=== PATIENT | male | born 1940 | race Caucasian/White ===

== ENCOUNTER 2018-01-05 08:04 | Inpatient (IN) | payer MEDICARE ==
[2018-01-05 09:05] LABS: #Eosinphils 0.1 thou/uL (0.0-0.7); #Lymphocytes 1.2 thou/uL (1.20-3.40); #Neutrophils 13.1 thou/uL (1.40-6.50); %Eosinophils 0.4 % (0.0-10.0); %Lymphocytes 7.7 % (21.0-51.0); %Monocytes 6.4 % (0.0-10.0); %Neutrophils 85.5 % (42.0-75.0); Hemoglobin 12.4 g/dL (14.0-18.0); Mean Corpuscular HGB CONC 33.4 g/dL (32.0-36.0); Mean Corpuscular Hemoglobin 31.6 pg (27.0-31.0); Mean Corpuscular Volume 94.6 fL (78.0-98.0); Mean Platelet Volume 8.1 fL (7.4-10.4); Platelet Count 208 thou/uL (130-400); RBC Distribution Width 13.9 % (11.5-14.5); Red Blood Cell (RBC) Count 3.92 mill/uL (4.70-6.10); White Blood Cell (WBC) Count 15.3 thou/uL (4.8-10.8)
--- NOTE | 2018-01-05 09:10 | CT ---
CT HEAD NONCONTRAST: Date: 01/05/18 HISTORY: Syncope. FINDINGS: No comparison. There is no evidence of acute intracranial hemorrhage or infarct. Diffuse cortical atrophy and chroni c ischemic small vessel disease are apparent. There is no mass effect or shift of midline structures. Visualized paranasal sinuses remain well aerated. IMPRESSION: No acute intracranial abnormalities are demonstrated. POS: [facility]
--- NOTE | 2018-01-05 09:24 | RAD ---
CHEST 1 VIEW: Date: 01/05/18 HISTORY: 77-year-old male with history of syncope. COMPARISON: 05/08/15. FINDINGS: Postop midline sternotomy. Minimal increased linear and interstitial markings bilaterally, having a s table chronic appearance when compared to the prior study. No confluent pneumonia, overt edema, or pl eural effusion. IMPRESSION: Minimal bilateral stable chronic linear lung changes. Status post midline sternotomy. Atherosclerosis of aorta. Borderline dilatation of right and left pulmonary arteries, stable. No new process. POS: [facility]
[2018-01-05 09:28] LABS: ALT (SGPT) 15 U/L (8-55); AST (SGOT) 23 U/L (5-34); Alkaline Phosphatase 90 U/L (40-150); BUN (Urea Nitrogen) 42 mg/dL (8.4-25.7); Bilirubin, Total 1.2 mg/dL (0.2-1.2); Calc. Creatinine Clearance 0 mL/min (70-130); Calcium 9.7 mg/dL (7.8-10.44); Estimated GFR-MDRD 31; Globulin 3.3 g/dL (2.4-3.5); Glucose 116 mg/dL (83-110); Protein, Total 7.3 g/dL (5.8-8.1)
[2018-01-05 09:33] LABS: CKMB 1.8 ng/mL (0-6.6); Troponin I 0.049 ng/mL (< 0.028)
[2018-01-05 09:37] LABS: Anion Gap 22 mmol/L (10-20); Carbon Dioxide 37 mmol/L (23-31); Chloride 88 mmol/L (98-107); Potassium 3.5 mmol/L (3.5-5.1); Sodium 143 mmol/L (136-145)
[2018-01-05] MEDS ORDERED: Piperacillin/Tazobactam 4.5 GM VIAL ONE (10:08)
[2018-01-05 11:39] LABS: Bilirubin Negative (Negative); Blood, Urine Negative (Negative); Clarity CLEAR (Clear); Glucose, Urine (Dipstick) Negative (Negative); Leukocyte Negative (Negative); Nitrite Negative (Negative); Protein, Urine (Dipstick) Negative (Neg-Trace); Specific Gravity, Urine 1.011 (1.002-1.036); pH, Urine 6.5 (5.0-9.0)
[2018-01-05 12:22] LABS: Troponin I 0.056 ng/mL (< 0.028)
[2018-01-05 14:09] LABS: Lactic Acid 1.5 mmol/L (0.5-2.2)
[2018-01-05 14:45] VITALS: BMI 26.7
[2018-01-05 15:20] LABS: Troponin I 0.106 ng/mL (< 0.028)
[2018-01-05] MEDS ORDERED: Acetaminophen 650 MG Suppository PR PRN (16:19)
[2018-01-05] MEDS ORDERED: Enoxaparin Sodium 30 MG/0.3 ML SYRINGE SC SCH (16:19)
[2018-01-05] MEDS ORDERED: Ondansetron ODT 4 MG TAB PO PRN (16:19)
[2018-01-05] MEDS ORDERED: Ondansetron HCl/PF 4 MG/2 ML Vial IVP PRN (16:19)
[2018-01-05] MEDS ORDERED: Albuterol Sulfate 2.5 mg/3 ml Neb NEB PRN (16:34)
[2018-01-05 17:21] LABS: CKMB 2.1 ng/mL (0-6.6); Troponin I 0.103 ng/mL (< 0.028)
[2018-01-05] MEDS: Acetaminophen 325 MG TAB PO PRN (19:11)
[2018-01-05] MEDS: Mometasone/Formoterol 120 PUFF INHALER INH SCH (19:38)
[2018-01-05] MEDS: Ipratropium Bromide 2.5 ml Neb NEB SCH (19:39)
[2018-01-05] MEDS: Atorvastatin Calcium 40 MG TAB PO SCH (21:04)
[2018-01-05] MEDS: Carvedilol 3.125 MG TAB PO SCH (21:04)
[2018-01-06 01:00] LABS: CKMB 1.7 ng/mL (0-6.6); Troponin I 0.096 ng/mL (< 0.028)
[2018-01-06] MEDS: Ipratropium Bromide 2.5 ml Neb NEB SCH ×5 (01:50→23:23)
[2018-01-06 05:54] LABS: #Eosinphils 0.2 thou/uL (0.0-0.7); #Lymphocytes 1.3 thou/uL (1.20-3.40); #Monocytes 0.7 thou/uL (0.11-0.59); #Neutrophils 5.8 thou/uL (1.40-6.50); %Eosinophils 2.3 % (0.0-10.0); %Monocytes 8.3 % (0.0-10.0); %Neutrophils 73.4 % (42.0-75.0); Mean Corpuscular HGB CONC 34.2 g/dL (32.0-36.0); Mean Corpuscular Hemoglobin 32.1 pg (27.0-31.0); Mean Platelet Volume 8.4 fL (7.4-10.4); Platelet Count 168 thou/uL (130-400); RBC Distribution Width 13.7 % (11.5-14.5); Red Blood Cell (RBC) Count 3.11 mill/uL (4.70-6.10); White Blood Cell (WBC) Count 7.8 thou/uL (4.8-10.8)
[2018-01-06 06:04] LABS: BUN (Urea Nitrogen) 43 mg/dL (8.4-25.7); Calc. Creatinine Clearance 47 mL/min (70-130); Calcium 8.5 mg/dL (7.8-10.44); Cardiac Risk 3.1 (Less than 4.5); Cholesterol 96 mg/dl (< 200 Desired); Estimated GFR-MDRD 39; Glucose 97 mg/dL (83-110); HDL Cholesterol 31 mg/dL (>60 Neg Risk); LDL Cholesterol, Calculated 48 mg/dL; Magnesium 2.2 mg/dL (1.6-2.6); Triglycerides 87 mg/dL (Less than 150)
[2018-01-06 06:21] LABS: Chloride 89 mmol/L (98-107); Sodium 139 mmol/L (136-145)
[2018-01-06 06:24] LABS: Anion Gap 13 mmol/L (10-20); Carbon Dioxide 39 mmol/L (23-31)
[2018-01-06 06:27] LABS: Potassium 2.3 mmol/L (3.5-5.1)
[2018-01-06] MEDS ORDERED: Spiriva 18 MCG CAP (Box of 5 Caps) INH SCH (07:00)
[2018-01-06] MEDS: Mometasone/Formoterol 120 PUFF INHALER INH SCH ×2 (07:23→19:29)
[2018-01-06] MEDS: Potassium Chloride 20 MEQ in Premix Bag 1 BAG IVPB SCH ×2 (08:05→19:23)
[2018-01-06] MEDS: Lisinopril 2.5 MG TAB PO SCH (08:05)
[2018-01-06] MEDS: Carvedilol 3.125 MG TAB PO SCH (08:06)
[2018-01-06] MEDS: Acetaminophen 325 MG TAB PO PRN (08:06)
[2018-01-06] MEDS: Famotidine 20 MG TAB PO SCH (08:06)
[2018-01-06] MEDS: Potassium Chloride 20 MEQ TAB PO SCH ×4 (11:05→22:12)
--- NOTE | 2018-01-06 14:59 | PDOC.PN ---
- Subjective Encounter Start Date: 01/06/18 Encounter Start Time: 12:00 Pt feels better, no dizziness, syncope or presyncope, not out of bed much. No F /c, no n/V/dC, no CP, no SOB. BLE edema about the same All systesm reviewed and neg x as above - Objective Resuscitation Status: Resuscitation Status FULL:Full Resuscitation MAR Reviewed: Yes Vital Signs & Weight: Vital Signs (12 hours) Temp Pulse Resp BP BP Pulse Ox 01/06/18 14:18 68 17 01/06/18 11:07 98.1 F 68 20 91/52 L 01/06/18 08:05 71 101/60 01/06/18 07:23 71 12 01/06/18 07:22 98.1 F 68 20 101/60 95 01/06/18 07:20 91 L 01/06/18 07:10 71 12 01/06/18 04:00 97.6 F 61 16 103/55 L 92 L Weight Weight 198 lb 9.6 oz I&O: 01/05/18 01/06/18 01/07/18 06:59 06:59 06:59 Intake Total 740 Output Total 350 Balance 390 Result Diagrams: 01/06/18 05:05 01/06/18 05:05 Phys Exam - Physical Examination Constitutional: NAD HEENT: PERRLA, moist MMs, sclera anicteric, oral pharynx no lesions Neck: no nodes, no JVD, supple, full ROM Respiratory: no wheezing, no rales, no rhonchi, clear to auscultation bilateral Cardiovascular: RRR, no significant murmur, no rub Gastrointestinal: soft, non-tender, no distention, positive bowel sounds Musculoskeletal: edema present Neurological: non-focal, normal sensation, moves all 4 limbs Lymphatic: no nodes Psychiatric: normal affect, A&O x 3 Skin: no rash, normal turgor, cap refill <2 seconds Dx/Plan (1) Syncope and collapse Code(s): R55 - SYNCOPE AND COLLAPSE Status: Acute Comment: likely orthostatic prior to IV bolus. al most met criteria after. hold lasix, light hydration, on Coreg and low dose lisinopril (2) ELIANA (acute kidney injury) Code(s): N17.9 - ACUTE KIDNEY FAILURE, UNSPECIFIED Status: Acute (3) Moderate dehydration Code(s): E86.0 - DEHYDRATION Status: Acute (4) Chronic diastolic CHF (congestive heart failure) Code(s): I50.32 - CHRONIC DIASTOLIC (CONGESTIVE) HEART FAILURE Status: Chronic (5) COPD (chronic obstructive pulmonary disease) Status: Chronic Qualifiers: COPD type: unspecified COPD Qualified Code(s): J44.9 - Chronic obstructive pulmonary disease, unspecified (6) Hypokalemia Code(s): E87.6 - HYPOKALEMIA Status: Acute Comment: replace - Plan cont current plan of care, PT/OT, respiratory therapy, out of bed/ambulate, DVT proph w/lovenox * .
[2018-01-06] MEDS: Sodium Chloride 0.9% 500 ML IVPB SCH ×2 (15:08→20:40)
--- NOTE | 2018-01-06 15:49 | HP ---
DATE OF ADMISSION: 01/05/2018 TIME OF SERVICE: 1600 PRIMARY CARE PHYSICIAN: Dr. Irina Parham PRIMARY FUR BUYER: Dr. Orellana. PRIMARY CUSTOMS OFFICER: Dr. Pino. CHIEF COMPLAINT: Syncope. HISTORY OF PRESENT ILLNESS: Mr. Eli is a 77-year-old male with history of COPD, chronic diastolic CH F followed by Dr. Orellana, on recently increased twice a day Lasix, hyperlipidemia, with usually nor mal renal function. The patient experienced syncopal episode 2 weeks ago, did not seek medical care for it, but on the day of admission, 01/05/2018, patient got up to go to the bathroom and felt lighth eaded and then woke up on the floor. No trauma was noted on evaluation in the emergency department. He denied any presyncopal aura, no tonic-clonic activity, no tongue biting, no bowel or bladder inco ntinence. He denies any chest pain or difficulty breathing. He has had some increased edema for the last 3-4 weeks and was increased from daily to twice a day Lasix. No other medication changes. PAST MEDICAL HISTORY: 1. COPD. 2. CHF, diastolic, chronic. 3. Hyperlipidemia. 4. Aortic rupture repair. MEDICATIONS: 1. Coreg 6.25 mg p.o. b.i.d., recently increased. 2. Zetia 5 mg p.o. at bedtime. 3. Lasix usually 40 mg daily, recently increased to 40 mg b.i.d. 4. Lisinopril 2.5 mg daily. 5. Atorvastatin 80 mg p.o. at bedtime. 6. DuoNeb 3-4 times a day. ALLERGIES: NKDA. FAMILY HISTORY: Negative for clotting or bleeding disorder, no immune dysfunction. SOCIAL HISTORY: Negative x3. REVIEW OF SYSTEMS: All systems reviewed and negative except as per HPI. PHYSICAL EXAMINATION: VITAL SIGNS: Temperature 98.2, pulse 89, blood pressure 103/57, respiratory rate 14, satting 95% on 2 liters nasal cannula he is on chronically. GENERAL: He is awake, he is alert. He is oriented x3, well-developed, well-nourished, white male wh o appears to be in no acute distress. HEENT: Normocephalic, atraumatic. Pupils equal, round, reactive to light bilaterally. Mucous membr anes moist. No visible lesions or thrush. NECK: Supple. There is no lymphadenopathy, no JVD, no thyromegaly. The trachea is midline. He has no delayed carotid upstrokes and no bruits. LUNGS: Clear to auscultation anteriorly and posteriorly does have some faint bibasilar crackles. He has no prolonged expiratory phase. There is no rhonchi. CARDIOVASCULAR: Normal S1, S2. He has no audible murmurs. ABDOMEN: Soft, is nontender, nondistended. He is obese, has good bowel sounds in all four quadrants . There is no rebound, rigidity or guarding. EXTREMITIES: No signs of clubbing. He has got chronic lower extremity edema with changes that is un changed from his baseline. SKIN: Otherwise, warm and well perfused without any other rashes or lesions. Does seem to have some diffuse seborrheic dermatitis. MUSCULOSKELETAL: Normal to inspection, large joints appear normal. Evidence of inflammation, probab le effusion. NEUROLOGIC: Cranial nerves II-XII are grossly intact, he has 5/5 strength in lower extremities. He has a normal speech pattern. There is no focal deficit. LABORATORY DATA: Sodium is 143, potassium 3.7, chloride 88, bicarbonate 37, BUN is 42 and creatinine 2.09, glucose 116, calcium 9.7. Liver function within normal limits. His CBC showed a white count of 15.3, hemoglobin 12.4, hematocrit of 37.1, platelet count 280,000, and 85% granulates, 8% lymphs. Lactic acid level was elevated at 3.8 with a repeat 5 hours later 1.5. Urinalysis was normal. BNP was only minimally elevated at 117.9. Troponin I was indeterminate, 0.049, 0.056, and 0.106. CK-MB was normal at 1.8. A CT scan of the brain was negative for acute intracranial abnormality. Chest x-ray showed no acute changes. ASSESSMENT AND PLAN: 1. Syncope and collapse. Patient likely orthostatic from increased diuretics and acute kidney injur y. We will give him a 500 mL bolus, but once in a low maintenance fluids and watch him overnight. H old his Lasix for now. 2. Acute kidney injury: Normal creatinine is less than around 0.8 and 2.09 today, likely with incre ased BUN and creatinine ratio, likely secondary to over diuresis. Repeat in the morning. 3. Elevated troponin: Could have demand ischemia from low blood pressure. I do not think he has [place] d an acute myocardial infarction. We will trend out his troponins. He has not gotten any Lovenox. 4. Moderate to severe dehydration. Lactic acid initially elevated at 3.8 and down to 1.5 with a loretta f liter of fluid. Continue to hydrate. 5. History of chronic obstructive pulmonary disease. We will continue respiratory medications. 6. History of chronic congestive heart failure. The patient is over diuresed. Hold his Lasix and g janak him some fluids and reassess. We will notify Dr. Orellana of his admission.
[2018-01-06] MEDS: Sodium Chloride 0.9% 1,000 ML IV SCH (17:20)
[2018-01-06] MEDS: Atorvastatin Calcium 40 MG TAB PO SCH (20:09)
[2018-01-06] MEDS ORDERED: Sodium Chloride 0.9% 500 ML IV SCH (20:45)
[2018-01-07] MEDS: Sodium Chloride 0.9% 1,000 ML IV SCH ×2 (01:37→20:29)
[2018-01-07 05:20] LABS: #Eosinphils 0.3 thou/uL (0.0-0.7); #Lymphocytes 1.3 thou/uL (1.20-3.40); #Monocytes 0.6 thou/uL (0.11-0.59); #Neutrophils 5.1 thou/uL (1.40-6.50); %Basophils 0.4 % (0.0-1.0); %Eosinophils 3.5 % (0.0-10.0); %Lymphocytes 17.2 % (21.0-51.0); %Monocytes 8.6 % (0.0-10.0); %Neutrophils 70.3 % (42.0-75.0); Hemoglobin 10.9 g/dL (14.0-18.0); Mean Corpuscular HGB CONC 33.7 g/dL (32.0-36.0); Mean Corpuscular Hemoglobin 32.2 pg (27.0-31.0); Mean Corpuscular Volume 95.4 fL (78.0-98.0); Mean Platelet Volume 8.2 fL (7.4-10.4); Platelet Count 156 thou/uL (130-400); RBC Distribution Width 13.8 % (11.5-14.5); Red Blood Cell (RBC) Count 3.38 mill/uL (4.70-6.10); White Blood Cell (WBC) Count 7.3 thou/uL (4.8-10.8)
[2018-01-07 05:40] LABS: Anion Gap 10 mmol/L (10-20); BUN (Urea Nitrogen) 30 mg/dL (8.4-25.7); Calc. Creatinine Clearance 73 mL/min (70-130); Calcium 8.3 mg/dL (7.8-10.44); Carbon Dioxide 34 mmol/L (23-31); Chloride 97 mmol/L (98-107); Estimated GFR-MDRD 65; Glucose 92 mg/dL (83-110); Magnesium 2.1 mg/dL (1.6-2.6); Potassium 4.2 mmol/L (3.5-5.1); Sodium 137 mmol/L (136-145)
[2018-01-07] MEDS: Ipratropium Bromide 2.5 ml Neb NEB SCH ×3 (07:31→18:50)
[2018-01-07] MEDS: Mometasone/Formoterol 120 PUFF INHALER INH SCH ×2 (07:41→18:49)
[2018-01-07] MEDS: Famotidine 20 MG TAB PO SCH (09:06)
[2018-01-07] MEDS: Atorvastatin Calcium 40 MG TAB PO SCH (20:23)
--- NOTE | 2018-01-07 20:52 | EKG ---
Test Reason : ER Blood Pressure : / mmHG Vent. Rate : 089 BPM Atrial Rate : 089 BPM P-R Int : 000 ms QRS Dur : 148 ms QT Int : 418 ms P-R-T Axes : 000 -42 063 degrees QTc Int : 508 ms Atrial fibrillation with premature ventricular or aberrantly conducted complexes Left axis deviation Right bundle branch block Abnormal ECG Confirmed by STEPHANIE KC ([id number]), map editor SUZANNE ORELLANA ([id number]) on 01/07/2018 8:51:41 PM Referred By: Confirmed By:STEPHANIE KC
[2018-01-08] MEDS: Ipratropium Bromide 2.5 ml Neb NEB SCH ×5 (00:07→23:55)
[2018-01-08] MEDS: Mometasone/Formoterol 120 PUFF INHALER INH SCH ×2 (07:15→19:22)
[2018-01-08] MEDS: Carvedilol 3.125 MG TAB PO SCH ×2 (08:53→20:59)
[2018-01-08] MEDS: Lisinopril 2.5 MG TAB PO SCH (08:53)
[2018-01-08] MEDS: Famotidine 20 MG TAB PO SCH (08:56)
[2018-01-08 10:47] LABS: Anion Gap 8 mmol/L (10-20); BUN (Urea Nitrogen) 16 mg/dL (8.4-25.7); Calc. Creatinine Clearance 102 mL/min (70-130); Calcium 8.7 mg/dL (7.8-10.44); Carbon Dioxide 36 mmol/L (23-31); Chloride 97 mmol/L (98-107); Estimated GFR-MDRD Greater than 90; Glucose 131 mg/dL (83-110); Magnesium 1.9 mg/dL (1.6-2.6); Sodium 137 mmol/L (136-145)
--- NOTE | 2018-01-08 15:14 | PDOC.PN ---
- Subjective Encounter Start Date: 01/07/18 weak, too weak to walk with PT. Breathing at baseline, large drop in BP lying to sitting, unable to stand. no f/C, no n/V/D/C, no CP or SOb, no orthopnea all systems reviewed and neg x as above - Objective Resuscitation Status: Resuscitation Status FULL:Full Resuscitation MAR Reviewed: Yes Vital Signs & Weight: Vital Signs (12 hours) Temp Pulse Resp BP BP BP BP 01/08/18 14:19 79 16 01/08/18 13:57 107/56 L 117/59 L 90/55 L 01/08/18 12:00 76 14 97/61 01/08/18 08:53 72 01/08/18 08:00 97.7 F 72 14 96/59 L 01/08/18 07:15 72 12 01/08/18 07:06 01/08/18 07:03 72 12 01/08/18 04:00 98 F 71 18 123/71 Pulse Ox 01/08/18 14:19 01/08/18 13:57 01/08/18 12:00 92 L 01/08/18 08:53 01/08/18 08:00 95 01/08/18 07:15 01/08/18 07:06 94 L 01/08/18 07:03 01/08/18 04:00 95 Weight Weight 199 lb 8 oz I&O: 01/07/18 01/08/18 01/09/18 06:59 06:59 06:59 Intake Total 1240 700 480 Output Total 700 1525 Balance 540 -825 480 Result Diagrams: 01/07/18 04:36 01/08/18 10:09 Phys Exam - Physical Examination Constitutional: NAD HEENT: PERRLA, moist MMs, sclera anicteric, oral pharynx no lesions Neck: no nodes, no JVD, supple, full ROM Respiratory: no wheezing, no rales, no rhonchi, clear to auscultation bilateral Cardiovascular: RRR, no significant murmur, no rub Gastrointestinal: soft, non-tender, no distention, positive bowel sounds Musculoskeletal: no edema, pulses present, edema present Neurological: non-focal, normal sensation, moves all 4 limbs Lymphatic: no nodes Psychiatric: normal affect, A&O x 3 Skin: no rash, normal turgor, cap refill <2 seconds Dx/Plan (1) Syncope and collapse Code(s): R55 - SYNCOPE AND COLLAPSE Status: Acute Comment: likely orthostatic prior to IV bolus. almost met criteria after. hold lasix, light hydration, on Coreg and low dose lisinopril. (2) ELIANA (acute kidney injury) Code(s): N17.9 - ACUTE KIDNEY FAILURE, UNSPECIFIED Status: Acute (3) Moderate dehydration Code(s): E86.0 - DEHYDRATION Status: Acute (4) Chronic diastolic CHF (congestive heart failure) Code(s): I50.32 - CHRONIC DIASTOLIC (CONGESTIVE) HEART FAILURE Status: Chronic (5) COPD (chronic obstructive pulmonary disease) Status: Chronic Qualifiers: COPD type: unspecified COPD Qualified Code(s): J44.9 - Chronic obstructive pulmonary disease, unspecified (6) Hypokalemia Code(s): E87.6 - HYPOKALEMIA Status: Acute Comment: replace - Plan cont current plan of care, PT/OT, out of bed/ambulate * .
--- NOTE | 2018-01-08 15:17 | PDOC.PN ---
- Subjective Encounter Start Date: 01/08/18 Encounter Start Time: 10:00 no changes, BP better, Cr down to normal, no F/c, no n/V/d/c. Pt denies CP, no orthopnea or PNS all systems reviewed and neg x as above - Objective Resuscitation Status: Resuscitation Status FULL:Full Resuscitation MAR Reviewed: Yes Vital Signs & Weight: Vital Signs (12 hours) Temp Pulse Resp BP BP BP BP 01/08/18 14:19 79 16 01/08/18 13:57 107/56 L 117/59 L 90/55 L 01/08/18 12:00 76 14 97/61 01/08/18 08:53 72 01/08/18 08:00 97.7 F 72 14 96/59 L 01/08/18 07:15 72 12 01/08/18 07:06 01/08/18 07:03 72 12 01/08/18 04:00 98 F 71 18 123/71 Pulse Ox 01/08/18 14:19 01/08/18 13:57 01/08/18 12:00 92 L 01/08/18 08:53 01/08/18 08:00 95 01/08/18 07:15 01/08/18 07:06 94 L 01/08/18 07:03 01/08/18 04:00 95 Weight Weight 199 lb 8 oz I&O: 01/07/18 01/08/18 01/09/18 06:59 06:59 06:59 Intake Total 1240 700 480 Output Total 700 1525 Balance 540 -825 480 Result Diagrams: 01/07/18 04:36 01/08/18 10:09 Phys Exam - Physical Examination Constitutional: NAD HEENT: PERRLA, moist MMs, sclera anicteric, oral pharynx no lesions Neck: no nodes, no JVD, supple, full ROM Respiratory: no wheezing, no rales, no rhonchi, clear to auscultation bilateral Cardiovascular: RRR, no rub Gastrointestinal: soft, non-tender, no distention, positive bowel sounds Musculoskeletal: edema present Neurological: non-focal, normal sensation, moves all 4 limbs Lymphatic: no nodes Psychiatric: normal affect, A&O x 3 Skin: no rash, normal turgor, cap refill <2 seconds Dx/Plan (1) Syncope and collapse Code(s): R55 - SYNCOPE AND COLLAPSE Status: Acute Comment: likely orthostatic prior to IV bolus. better today, hold lasix, start tomrrow, possible ready for D/C in AM (2) ELIANA (acute kidney injury) Code(s): N17.9 - ACUTE KIDNEY FAILURE, UNSPECIFIED Status: Resolved (3) Moderate dehydration Code(s): E86.0 - DEHYDRATION Status: Resolved (4) Chronic diastolic CHF (congestive heart failure) Code(s): I50.32 - CHRONIC DIASTOLIC (CONGESTIVE) HEART FAILURE Status: Chronic (5) COPD (chronic obstructive pulmonary disease) Status: Chronic Qualifiers: COPD type: unspecified COPD Qualified Code(s): J44.9 - Chronic obstructive pulmonary disease, unspecified (6) Hypokalemia Code(s): E87.6 - HYPOKALEMIA Status: Acute Comment: replace - Plan * .
[2018-01-08] MEDS: Sodium Chloride 0.9% 1,000 ML IV SCH (15:33)
[2018-01-08] MEDS: Atorvastatin Calcium 40 MG TAB PO SCH (20:59)
[2018-01-09 06:03] LABS: #Eosinphils 0.3 thou/uL (0.0-0.7); #Lymphocytes 1.5 thou/uL (1.20-3.40); #Monocytes 0.9 thou/uL (0.11-0.59); #Neutrophils 4.8 thou/uL (1.40-6.50); %Basophils 0.3 % (0.0-1.0); %Eosinophils 4.1 % (0.0-10.0); %Lymphocytes 20.5 % (21.0-51.0); %Monocytes 11.3 % (0.0-10.0); %Neutrophils 63.7 % (42.0-75.0); Hemoglobin 10.6 g/dL (14.0-18.0); Mean Corpuscular HGB CONC 32.9 g/dL (32.0-36.0); Mean Corpuscular Hemoglobin 31.8 pg (27.0-31.0); Mean Corpuscular Volume 96.7 fL (78.0-98.0); Mean Platelet Volume 8.4 fL (7.4-10.4); Platelet Count 149 thou/uL (130-400); RBC Distribution Width 14.2 % (11.5-14.5); Red Blood Cell (RBC) Count 3.32 mill/uL (4.70-6.10); White Blood Cell (WBC) Count 7.5 thou/uL (4.8-10.8)
[2018-01-09 06:11] LABS: Anion Gap 10 mmol/L (10-20); BUN (Urea Nitrogen) 14 mg/dL (8.4-25.7); Calc. Creatinine Clearance 95 mL/min (70-130); Calcium 8.8 mg/dL (7.8-10.44); Carbon Dioxide 32 mmol/L (23-31); Chloride 100 mmol/L (98-107); Estimated GFR-MDRD 87; Glucose 104 mg/dL (83-110); Magnesium 1.9 mg/dL (1.6-2.6); Potassium 4.4 mmol/L (3.5-5.1); Sodium 138 mmol/L (136-145)
[2018-01-09] MEDS: Mometasone/Formoterol 120 PUFF INHALER INH SCH (07:05)
[2018-01-09] MEDS: Ipratropium Bromide 2.5 ml Neb NEB SCH ×2 (07:05→12:42)
--- NOTE | 2018-01-09 08:53 | PQF ---
CLINICAL DOCUMENTATION IMPROVEMENT CLARIFICATION FORM: ICD-10 Updated PLEASE DO AN ADDENDUM TO THE PROGRESS NOTE WITH ANY DOCUMENTATION UPDATES OR ADDITIONS AND CARRY THROUGH TO DC SUMMARY. THANK YOU. DATE: 01/09 ATTN: DR. CASA OGLESBY Please exercise your independent, professional judgment in responding to the clarification form. Clinical indicators are provided on the bottom of this form for your review. Please check appropriate box(s): AMI TYPE: [ ] NSTEMI [ ] AMI Type II [ X ] DEMAND ISCHEMIA [ ] Other diagnosis [ ] Unable to determine CLINICAL INDICATORS - SIGNS / SYMPTOMS / LABS H&P 01/06: IMPRESSION & PLAN: 3) ELEVATED TROPONIN: COULD HAVE DEMAND ISCHEMIA FROM LOW BLOOD PRESSURE. I DO NOT THINK HE HAD HAD AN ACUTE OH. WE WILL TREND OUT HIS TROPONINS TROP I: 0.049, 0.056, 0.106, 0.103, 0.096 (01/05 - ) RISKS: SYNCOPE, LIKELY ORTHOSTATIC FROM INCREASED DIURETICS (H&P) ELIANA CHRONIC DIASTOLIC CHF MODERATE TO SEVERE DEHYDRATION TREATMENTS: SERIAL CARDIAC ENZYMES IVF (NS 01/06 - PRESENT) TELEMETRY MONITORING THANK YOU! Herminia (This form is maintained as a part of the permanent medical record) 2014 [employer] All Rights Reserved Herminia Paiz RN, BSN [email or web address] Office: [phone] [facility]IC[facility] HOSPITALSonali
[2018-01-09] MEDS: Lisinopril 2.5 MG TAB PO SCH (09:13)
[2018-01-09] MEDS: Famotidine 20 MG TAB PO SCH (09:13)
[2018-01-09] MEDS: Carvedilol 3.125 MG TAB PO SCH (09:13)
[2018-01-09] MEDS: Sodium Chloride 0.9% 1,000 ML IV SCH (10:15)
--- NOTE | 2018-01-09 13:13 | DIS ---
DATE OF ADMISSION: 01/05/2018 DATE OF DISCHARGE: 01/09/2018 DISCHARGE DIAGNOSES: 1. Status post syncope secondary to hypotension, improved. 2. Acute kidney injury, resolved. 3. Moderate dehydration, resolved. 4. Demand ischemia. 5. Chronic diastolic congestive heart failure, stable. 6. Chronic hypoxic respiratory failure, on chronic oxygen supplementation at 2 liters per minute by nasal cannula. 7. Hypokalemia, resolved. 8. Deconditioning. CONSULTATIONS: None. PERTINENT LABORATORY AND X-RAY FINDINGS: Potassium ranged between 2.3-4.4, creatinine ranged between 0.80-2.09, estimated GFR ranged between 31 to greater than 90. Troponin I ranged between 0.049-0.10 6. BNP 118, total cholesterol 96, triglycerides 87, HDL 31, LDL 48. CBC showed a white blood cell c ount ranging between 7.3-15.3, hemoglobin ranging between 10.0-12.4. Blood cultures showed 1/2 posit janak for coagulase-negative Staphylococcus with methicillin-resistant Staphylococcus epidermidis skin contaminant. CT of the brain without contrast dated 01/05/2018 showed no acute intracranial process. Portable chest x-ray dated 01/05/2018 showed chronic lung changes in bilateral lung musa without acute process. HOSPITAL COURSE: The patient was initially admitted after presenting status post syncopal episode, l ikely orthostatic hypotension in the context of diuretic therapy and acute kidney injury. The patien t received IV fluids as well as discontinuation of diuretic therapy. The patient had overall improve ment in blood pressure trend with discontinuation of diuretics and titration of his antihypertensive regimen. The patient was also noted with acute kidney injury, resolving with IV fluid hydration. Th e patient remained with general weakness and deconditioning throughout the hospital course, receiving physical therapy evaluation for short distance transfers and ambulation. Due to patient's overall d econditioned status and comorbid conditions, the patient was deemed an appropriate candidate for home health services including physical therapy. The patient overall clinically stable with supportive m anagement. I have examined the patient at the time of discharge and discussed followup instructions, at which point the patient verbalized understanding and agreement. The patient overall clinically s table and ready for discharge on 01/09/2018. DISCHARGE MEDICATIONS: 1. Lipitor 80 mg p.o. at bedtime. 2. Zetia 5 mg p.o. daily. 3. DuoNeb 3 mL nebulized q.i.d. p.r.n. 4. Coreg 3.125 mg p.o. b.i.d. 5. Lisinopril 2.5 mg p.o. daily. FOLLOWUP: Patient may follow up with his primary care provider, Dr. Irina Parham, within 7 days of disc harge. CONDITION ON DISCHARGE: Fair. ACTIVITY: Ad navid. Home health with physical therapy services on discharge. DIET: Heart healthy. CODE STATUS: DO NOT RESUSCITATE. DISPOSITION: Home with home health including physical therapy, 01/09/2018. Total time in preparing and coordinating discharge is 33 minutes.
[2018-01-09 16:56] VITALS: BP 105/54; TEMP 97.9
== END 2018-01-09 16:56 | disposition home health service (06) | DRG 683 ==
LOC: ERS 08:04 → 2NO 11:54
PROVIDERS: ADMIT Internal Medicine Infectious Disease; ATTEND Internal Medicine Infectious Disease
DX: N17.9 Acute kidney failure, unspecified (principal); I50.32 Chronic diastolic (congestive) heart failure; I24.8 Other forms of acute ischemic heart disease; J96.11 Chronic respiratory failure with hypoxia; E86.0 Dehydration; I95.2 Hypotension due to drugs; T50.1X5A Adverse effect of loop [high-ceiling] diuretics, initial encounter; J44.9 Chronic obstructive pulmonary disease, unspecified; E87.6 Hypokalemia; E78.5 Hyperlipidemia, unspecified; Z86.79 Personal history of other diseases of the circulatory system; Z99.81 Dependence on supplemental oxygen
CPT/HCPCS: 36415; 70450; 71045; 80048; 80053; 80061; 81003; 82553; 83605; 83735; 83880; 84484; 85025; 87040; 87149; 93005; 94640; 94760; 96361; 96365; 96367; A4216; G8978-GP-CJ; G8979-GP-CJ; J1650; J2543; J3370; J3480; J7620; J7644; Q0162

== ENCOUNTER 2018-02-15 14:35 | Emergency (ER) | payer MEDICARE ==
[2018-02-15 15:05] LABS: #Basophils 0.1 thou/uL (0.0-0.2); #Eosinphils 0.1 thou/uL (0.0-0.7); #Lymphocytes 1.7 thou/uL (1.20-3.40); #Monocytes 0.7 thou/uL (0.11-0.59); #Neutrophils 6.8 thou/uL (1.40-6.50); %Basophils 1.3 % (0.0-1.0); %Eosinophils 1.4 % (0.0-10.0); %Lymphocytes 18.2 % (21.0-51.0); %Monocytes 7.7 % (0.0-10.0); %Neutrophils 71.4 % (42.0-75.0); Hemoglobin 11.9 g/dL (14.0-18.0); Mean Corpuscular Hemoglobin 31.3 pg (27.0-31.0); Mean Corpuscular Volume 94.9 fL (78.0-98.0); Mean Platelet Volume 8.6 fL (7.4-10.4); Platelet Count 197 thou/uL (130-400); RBC Distribution Width 13.9 % (11.5-14.5); White Blood Cell (WBC) Count 9.5 thou/uL (4.8-10.8)
[2018-02-15 15:27] LABS: ALT (SGPT) 18 U/L (8-55); AST (SGOT) 20 U/L (5-34); Albumin 4.2 g/dL (3.4-4.8); Alkaline Phosphatase 87 U/L (40-150); Anion Gap 15 mmol/L (10-20); BUN (Urea Nitrogen) 43 mg/dL (8.4-25.7); Bilirubin, Total 1.5 mg/dL (0.2-1.2); CK (CPK) 48 U/L (30-200); Calc. Creatinine Clearance 0 mL/min (70-130); Calcium 9.6 mg/dL (7.8-10.44); Carbon Dioxide 34 mmol/L (23-31); Chloride 90 mmol/L (98-107); Estimated GFR-MDRD 41; Globulin 3.1 g/dL (2.4-3.5); Glucose 177 mg/dL (83-110); Lipase 56 U/L (8-78); Potassium 3.3 mmol/L (3.5-5.1); Protein, Total 7.3 g/dL (5.8-8.1); Sodium 136 mmol/L (136-145)
--- NOTE | 2018-02-15 15:49 | RAD ---
AP VIEW OF THE CHEST: 02/15/18 INDICATION: Syncope. COMPARISON: Prior exam dated 01/05/18. FINDINGS: Midline sternotomy changes are stable. Vascular calcifications in the aortic arch is stable. Chronic lung change is similar. No acute osseous abnormality is evident. IMPRESSION: No acute cardiopulmonary abnormality. POS: [facility]
[2018-02-15] MEDS ORDERED: ISOVUE-370 76%-LOCM 1 ML ONE (16:09)
--- NOTE | 2018-02-15 17:08 | CT ---
CTA AORTIC DISSECTION PROTOCOL WITH 3D REFORMATTED IMAGING 02/15/18 COMPARISON: Prior CT aortic dissection protocol dated 10/09/09. FINDINGS: There is stable aneurysmal dilatation of the ascending aorta measuring up to 4.7 cm. Mild aneurysmal dilatation of the descending thoracic aorta is stable. There is mild narrowing involving the proximal celiac artery. SMA is widely patent. The renal arteries bilaterally are patent. There is mild narrow ing involving the origin of the SHERRI. There is mild ectasia of the infrarenal abdominal aorta measuring up to 2.9 cm. There is worsening mi ld aneurysmal dilatation of the left common iliac artery. There is worsening mild aneurysmal dilatati on of the left internal iliac artery up to 1.9 cm. There is stable mild aneurysmal dilatation of the right common iliac artery measuring up to 1.8 cm. There is stable emphysema. There are layering gallstones within the gallbladder. There is stable left renal cysts. No hydronephr osis is evident. No free fluid is evident. The adrenal glands are normal appearing. There has been interval development of a 1.8 cm hypodense mass involving the inferior aspect of the p ancreatic body on image 130 of series 2. No pathologically enlarged lymph nodes are evident. There is mild thoracolumbar scoliosis. There is scattered degenerative and osteoarthritic change. IMPRESSION: 1. No definite acute aortic dissection or occlusion demonstrated. 2. Stable ascending aortic aneurysm measuring up to 4.7 cm. 3. Stable ectasia of the infrarenal abdominal aorta. 4. Worsening mild aneurysmal dilatation of the left common iliac artery and left internal iliac artery. 5. Stable mild aneurysmal dilatation of right common iliac artery. 6. Mild narrowing of the proximal celiac artery. 7. Interval development of a hypodense lesion involving the pancreatic body. This is incompletel y characterized on the current examination. This may reflect a small cystic abnormality; however, hyp odense mass is not excluded. Followup CT of the abdomen utilizing a pancreatic mass protocol is recom mended. 8. Emphysema. 9. Cholelithiasis. 10. Stable left renal cyst. POS: [facility]
== END 2018-02-15 17:12 | disposition left against medical advice (07) ==
LOC: ERS 14:35
DX: R07.9 Chest pain, unspecified (principal); R55 Syncope and collapse; J44.9 Chronic obstructive pulmonary disease, unspecified; I50.9 Heart failure, unspecified; Z79.82 Long term (current) use of aspirin; Z79.899 Other long term (current) drug therapy
CPT/HCPCS: 36415; 71045; 71275; 80053; 82550; 82553; 83690; 84484; 85025; 93005; 94760